=== PATIENT | male | born 1995 | race Two or more races ===

== ENCOUNTER 2019-02-10 22:54 | Emergency (ER) | payer OTHER ==
[~2019-02-10] VITALS: Ht 165.1 cm; Wt 197.8 kg
--- NOTE | 2019-02-10 22:58 | NUR ---
ER Nurse Note: Pt want to restroom
--- NOTE | 2019-02-10 23:08 | NUR ---
ED Nurse Note: Pt walked in c/o RT leg pain with swollen feet since 1 month ago. Pt stated mild pain on RT calf. No difficulty breathing. Pt denies being on blood thinner. ao4. nad. vss
[2019-02-10] MEDS ORDERED: Neosporin Oint Ud Pkt TOPIC ONE (23:30)
[2019-02-10] MEDS ORDERED: IBUPROFEN600 MG ORAL (23:42)
[2019-02-10] MEDS ORDERED: MUPIROCIN22 GM TOPIC (23:42)
[2019-02-10] MEDS ORDERED: BACTRIM DS TAB1 EAC1 ORAL (23:42)
--- NOTE | 2019-02-10 23:42 | Emergency Room Report ---
History of Present Illness General Chief Complaint: Lower Extremity Injury Source: Patient Present Illness HPI Is a 23-year-old morbidly obese male with a history of sleep apnea. He presents with chief complaint of right leg pain. Onset for last 3 weeks. On and off. [place] crampy and possible charley horse type of pain to the right lower extremity. He was concerned to come in to make sure he does have DVT. No trauma. No fever chills. No swelling. Denies any other complaint. Pain localized to the right lower calf. Pain is 7 out of 10. He also has skin breakdown along the skin line of his breasts. There is some drainage. This been ongoing for couple weeks. Similar symptom in the past. He has bacterial infection in that area before. Allergies: Coded Allergies: AMOXICILLIN (Verified Allergy, Unknown, 02/10/19) rash all over body Patient History Past Medical History: see triage record, old chart reviewed Past Surgical History: none Pertinent Family History: none Social History: Denies: smoking Immunizations: other Reviewed Nursing Documentation: PMH: Agreed; PSxH: Agreed Nursing Documentation-PMH Hx Asthma: Yes - tonsillectomy Review of Systems Eye: Denies: eye pain, blurred vision ENT: Denies: ear pain, nose congestion, throat swelling Respiratory: Denies: cough, shortness of breath Cardiovascular: Denies: chest pain, palpitations Gastrointestinal: Denies: abdominal pain, diarrhea, nausea, vomiting Musculoskeletal: Reports: muscle pain; Denies: back pain, joint pain Skin: Denies: rash Neurological: Denies: headache, numbness Endocrine: Denies: increased thirst, increased urine Hematologic/Lymphatic: Denies: easy bruising All Other Systems: negative except mentioned in HPI Physical Exam Vital Signs Date Time Temp Pulse Resp B/P (MAP) Pulse Ox O2 Delivery O2 Flow Rate FiO2 02/10/19 22:59 97.9 92 18 108/60 (76) 96 Room Air Vitals normal Sp02 EP Interpretation: reviewed, normal General Appearance: well appearing, no apparent distress, alert, obese Head: normocephalic, atraumatic Eyes: bilateral eye PERRL, bilateral eye EOMI ENT: hearing grossly normal, normal pharynx Neck: full range of motion, supple, no meningismus Respiratory: chest non-tender, lungs clear, normal breath sounds Cardiovascular #1: regular rate, rhythm, no murmur, other - There is skin breakdown and slight drainage along the skin line where his medial aspect the breast meet the chest wall. This is near the sternal area. Gastrointestinal: normal bowel sounds, non tender, no mass, no organomegaly, no bruit, non-distended Musculoskeletal: back normal, gait/station normal, normal range of motion, other - Mild right calf tenderness. No swelling. No cords. Psychiatric: mood/affect normal Medical Decision Making Diagnostic Impression: Primary Impression: Intertrigo Additional Impressions: Cellulitis of chest wall Right calf pain Morbid obesity with BMI of 70 and over, adult ER Course Patient presents with right calf pain. No evidence of any DVT or infection. He does have cellulitis and skin breakdown over breasts cleavage area. Probably secondary to his weight. Antibiotic prescribed. Will discharge home. Bedside ultrasound showed easily compressible veins in his calf and popliteal fossa. No evidence of DVT. CT/MRI/US Diagnostic Results CT/MRI/US Diagnostic Results : Imaging Test Ordered: Right leg ultrasound Impression Negative per radiologist Last Vital Signs Date Time Temp Pulse Resp B/P (MAP) Pulse Ox O2 Delivery O2 Flow Rate FiO2 02/10/19 22:59 97.9 92 18 108/60 (76) 96 Room Air Status: improved Disposition: HOME, SELF-CARE Condition: Stable Scripts Mupirocin* (MUPIROCIN*) 22 Gm Oint...g. 1 APPLIC TOPIC THREE TIMES A DAY, #22 GM Prov: Gigi Browne MD 02/10/19 Ibuprofen* (MOTRIN*) 600 Mg Tablet 600 MG ORAL THREE TIMES A DAY, #30 TAB 0 Refills Prov: Gigi Browne MD 02/10/19 Trimethoprim/Sulfamethoxazole 160/800* (BACTRIM DS TABLET*) 1 Each Tablet 1 TAB ORAL Q12H, #14 TAB 0 Refills Prov: Gigi Browne MD 02/10/19 Additional Instructions: Keep wound clean. Keep it dry and then apply antibiotic ointment. Follow-up with your doctor in 7 days. Return if symptoms worsen. Gigi Browne MD Feb 10, 2019 23:42
--- NOTE | 2019-02-11 00:18 | NUR ---
ED Nurse Note: unable to draw blood. called lab to draw.
--- NOTE | 2019-02-11 00:28 | NUR ---
ED Nurse Note: lab at bedside for blood draw.
--- NOTE | 2019-02-11 00:47 | NUR ---
ED Nurse Note: us at bedside.
[2019-02-11 01:15] VITALS: BP 145/72
--- NOTE | 2019-02-11 01:18 | NUR ---
ER DISCHARGE NOTE: Patient is cleared to be discharged per ERMD, pt is aox4, on room air, with stable vital signs. pt was given dc and prescription instructions, pt was able to verbalize understanding, pt id band removed. pt is able to ambulate with steady gait. pt took all belongings.
== END 2019-02-11 01:15 | disposition home or self-care (01) ==
LOC: EMR 23:06
DX: M79.661 Pain in right lower leg (principal); L30.4 Erythema intertrigo; L03.313 Cellulitis of chest wall; E66.01 Morbid (severe) obesity due to excess calories; Z68.45 Body mass index [BMI] 70 or greater, adult; Z88.1 Allergy status to other antibiotic agents; J45.909 Unspecified asthma, uncomplicated; G47.30 Sleep apnea, unspecified
CPT/HCPCS: 36415; 85379; Z7502; 99283